=== PATIENT | male | born 1980 | race Caucasian/White ===

== ENCOUNTER 2019-06-11 22:51 | Emergency (ER) | payer SELFPAY ==
[~2019-06-11] VITALS: Ht 177.8 cm; Wt 74.8 kg
[2019-06-11 23:00] VITALS: BP 115/72
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
--- NOTE | 2019-06-11 23:36 | NUR ---
DR. SANTIAGO CHAIRSIDE.
[2019-06-11] MEDS ORDERED: CEPHALEXIN 500 MG CAP PO ONE (23:45)
[2019-06-11] MEDS ORDERED: BACITRACIN OINT 500 UNITS/GM PKT TP ONE (23:45)
[2019-06-11] MEDS ORDERED: SULFAMETH/TRIMETH DS 800/160MG 1 TAB PO ONE (23:45)
[2019-06-12 00:15] VITALS: BP 115/72
--- NOTE | 2019-06-12 00:15 | NUR ---
PATIENT BIB [place] [employer], BY OFFICER SAMY ARRIAGA [id number]. PATIENT EXAMINED BY . PATIENT MEDICALLY CLEARED AND RELEASED IN CUSTODY IN STABLE CONDITION. ORIGINAL PRE-BOOK FORM GIVEN TO OFFICER SAMY ARRIAGA 4015.
== END 2019-06-12 00:15 ==
LOC: MED 22:51
DX: G89.29 Other chronic pain (principal); Z01.818 Encounter for other preprocedural examination
CPT/HCPCS: 90471; 90715; 99283; 99284; 99285